=== PATIENT | male | born 1990 | race Hispanic/Latino ===

== ENCOUNTER 2016-11-16 12:24 | Emergency (ER) | payer OTHER, BC ==
[2016-11-16 12:33] VITALS: BP 136/87; PULSE 68; RESP 18; TEMP 98; O2SAT 99
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
== END 2016-11-16 13:20 | disposition home or self-care (01) ==
LOC: H.ER 12:24
DX: M54.2 Cervicalgia (principal); V43.52XA Car driver injured in collision with other type car in traffic accident, initial encounter; Y92.410 Unspecified street and highway as the place of occurrence of the external cause